=== PATIENT | male | born 1960 | race Caucasian/White ===

== ENCOUNTER 2016-09-10 10:03 | Outpatient (RCR) | payer OTHER | END 2016-12-09 | LOC: WSOH | DX: Z01.89 Encounter for other specified special examinations (principal) ==

== ENCOUNTER 2017-01-12 12:59 | Outpatient (RCR) | payer OTHER | END 2017-04-12 | LOC: WSOH | DX: M54.5 Low back pain (principal); X50.0XXD Overexertion from strenuous movement or load, subsequent encounter ==

== ENCOUNTER 2017-07-16 10:15 | Outpatient (RCR) | payer OTHER | END 2017-10-04 15:31 | disposition still patient (30) | LOC: WSOH 10:15 | DX: Z51.89 Encounter for other specified aftercare (principal); Z76.0 Encounter for issue of repeat prescription; M54.5 Low back pain; G89.29 Other chronic pain; R20.0 Anesthesia of skin; Z96.89 Presence of other specified functional implants; Z79.891 Long term (current) use of opiate analgesic ==

== ENCOUNTER 2018-03-23 11:09 | Outpatient (RCR) | payer OTHER | END 2018-04-17 | disposition home or self-care (01) | LOC: WSOH | DX: M54.5 Low back pain (principal); X50.3XXA Overexertion from repetitive movements, initial encounter; Y99.0 Civilian activity done for income or pay; Y92.214 College as the place of occurrence of the external cause; Z79.899 Other long term (current) drug therapy; Z87.891 Personal history of nicotine dependence ==

== ENCOUNTER 2018-09-19 11:16 | Outpatient (RCR) | payer OTHER | END 2018-12-18 | disposition home or self-care (01) | LOC: WSOH | DX: Z76.0 Encounter for issue of repeat prescription (principal); M54.5 Low back pain; G89.29 Other chronic pain; Z87.891 Personal history of nicotine dependence; Z79.899 Other long term (current) drug therapy ==

== ENCOUNTER 2019-03-01 12:42 | Outpatient (RCR) | payer OTHER | END 2019-03-21 15:52 | LOC: WSOH 12:42 | DX: Z76.0 Encounter for issue of repeat prescription (principal); G89.29 Other chronic pain; M54.5 Low back pain; Z87.891 Personal history of nicotine dependence ==

== ENCOUNTER 2019-07-28 09:58 | Outpatient (RCR) | payer OTHER | END 2019-10-26 | disposition home or self-care (01) | LOC: WSOH | DX: Z76.0 Encounter for issue of repeat prescription (principal); M54.5 Low back pain; Z98.890 Other specified postprocedural states; Z87.891 Personal history of nicotine dependence; Y99.0 Civilian activity done for income or pay ==